=== PATIENT | male | born 1995 | race Hispanic/Latino ===

== ENCOUNTER 2019-04-23 13:28 | Emergency (ER) | payer MEDICAID, OTHER ==
[2019-04-23 14:06] LABS: BASOPHILS % (AUTO) 1.2 % (0.0-5.0); EOSINOPHILS % (AUTO) 2.1 % (0.0-8.0); HEMATOCRIT 42.8 % (42-54); LYMPHOCYTES % (AUTO) 23.7 % (21.0-51.0); MEAN CORPUSCULAR HEMOGLOBIN 29.5 pg (27.0-33.0); MEAN CORPUSCULAR HGB CONC 34.1 g/dL (32.0-36.0); MEAN CORPUSCULAR VOLUME 86.5 fL (79-99); MONOCYTES % (AUTO) 7.9 % (3.0-13.0); NEUTROPHILS % (AUTO) 65.1 % (40.0-77.0); PLATELET COUNT (AUTO) 307 K/uL (130-400); RED BLOOD CELL COUNT(AUTO) 4.95 MIL/uL (4.50-6.20); RED CELL DISTRIBUTION WIDTH 13.5 % (11.0-15.5); WHITE BLOOD COUNT (AUTO) 8.5 K/uL (4.8-10.8)
[2019-04-23 14:17] LABS: CREATININE 0.8 mg/dL (0.5-1.5); POTASSIUM 3.8 mmol/L (3.5-5.1)
[2019-04-23 14:19] LABS: ALBUMIN 3.4 g/dL (3.5-5.0); BILIRUBIN,TOTAL 0.8 mg/dL (0.2-1.0); TOTAL PROTEIN, SERUM 6.7 g/dL (6.0-8.3)
[2019-04-23 14:34] LABS: APPEARANCE,URINE Clear (CLEAR); BILIRUBIN,URINE Negative (NEGATIVE); COLOR,URINE Yellow (YELLOW); GLUCOSE, URINE (UA) Negative (NEGATIVE); KETONES,URINE Negative (NEGATIVE); LEUKOCYTE ESTERASE ,URINE Negative (NEGATIVE); NITRATE,URINE Negative (NEGATIVE); OCCULT BLOOD,URINE Negative (NEGATIVE); PH,URINE 6.5 (5.0-8.0); PROTEIN,URINE Negative (NEGATIVE)
[2019-04-23] MEDS ORDERED: IOHEXOL-350 75 ML VIAL IV ONE (14:51)
[2019-04-23] MEDS ORDERED: MAGNESIUM CITRATE 296 ML SOLUTION ONE (15:45)
== END 2019-04-23 17:40 | disposition home or self-care (01) ==
LOC: EDH 13:28
DX: R10.31 Right lower quadrant pain (principal); Z72.0 Tobacco use
CPT/HCPCS: 36415; 74177; 80053; 81003; 83690; 85025; 99285; Q9967

== ENCOUNTER 2022-08-29 10:18 | Emergency (ER) | payer OTHER ==
[~2022-08-29] VITALS: Ht 165.1 cm; Wt 104.3 kg
[2022-08-29 10:51] LABS: BASOPHILS % (AUTO) 0.6 % (0.0-5.0); EOSINOPHILS % (AUTO) 1.8 % (0.0-8.0); LYMPHOCYTES % (AUTO) 22.8 % (21.0-51.0); MEAN CORPUSCULAR HEMOGLOBIN 29.1 pg (27.0-33.0); MEAN CORPUSCULAR HGB CONC 34.3 g/dL (32.0-36.0); MEAN CORPUSCULAR VOLUME 84.8 fL (79-99); MONOCYTES % (AUTO) 6.3 % (3.0-13.0); NEUTROPHILS % (AUTO) 67.6 % (40.0-77.0); PLATELET COUNT (AUTO) 370 K/uL (130-400); RED BLOOD CELL COUNT(AUTO) 5.54 MIL/uL (4.50-6.20); RED CELL DISTRIBUTION WIDTH 12.7 % (11.0-15.5); WHITE BLOOD COUNT (AUTO) 8.6 K/uL (4.8-10.8)
[2022-08-29 11:01] LABS: APPEARANCE,URINE CLEAR (CLEAR); BILIRUBIN,URINE NEGATIVE (NEGATIVE); COLOR,URINE YELLOW (YELLOW); GLUCOSE, URINE (UA) NEGATIVE (NEGATIVE); KETONES,URINE NEGATIVE (NEGATIVE); LEUKOCYTE ESTERASE ,URINE NEGATIVE Leu/uL (NEGATIVE); NITRATE,URINE NEGATIVE (NEGATIVE); OCCULT BLOOD,URINE NEGATIVE (NEGATIVE); PH,URINE 5.5 (5.0-8.0); PROTEIN,URINE 20 mg/dL (NEGATIVE); UROBILINOGEN,URINE 0.2 mg/dL (0.2-1.0)
[2022-08-29 11:17] LABS: BACTERIA,URINE RARE /HPF (None Seen); MUCUS,URINE RARE LPF (None Seen); SQUAMOUS EPITHELIAL CELL,UR RARE /HPF (0-2)
[2022-08-29] MEDS ORDERED: 0.9%NACL 1000ML 1,000 ML IV ONE (12:00)
[2022-08-29] MEDS ORDERED: ONDANSETRON 4MG INJ IVP ONE (12:00)
[2022-08-29] MEDS ORDERED: FAMOTIDINE 20MG VIAL IV ONE (12:00)
[2022-08-29] MEDS ORDERED: MORPHINE 2 MG SYG IVP ONE (12:00)
[2022-08-29 12:03] LABS: ALBUMIN 3.9 g/dL (3.5-5.0); CREATININE 0.9 mg/dL (0.5-1.5); POTASSIUM 4.2 mmol/L (3.5-5.1); TOTAL PROTEIN, SERUM 8.1 g/dL (6.0-8.3)
[2022-08-29] MEDS ORDERED: ONDA4TAB10 PO (13:01)
[2022-08-29] MEDS ORDERED: FAMO-136 PO (13:01)
[2022-08-29] MEDS ORDERED: DICY20TA2 PO (13:01)
[2022-08-29] MEDS ORDERED: BACI1CAP6 PO (13:01)
[2022-08-29 14:20] VITALS: BP 100/59
== END 2022-08-29 14:19 | disposition home or self-care (01) ==
LOC: EDH 10:18
DX: K52.9 Noninfective gastroenteritis and colitis, unspecified (principal); Z90.89 Acquired absence of other organs
CPT/HCPCS: 99284; 96374; 96361; 96375; 84484; 80053; 83690; 85025; 81001; 36415; 93005; J3490; J7030; J2405

== ENCOUNTER 2025-03-12 15:56 | Emergency (ER) | payer SELFPAY ==
[~2025-03-12] VITALS: Ht 172.7 cm; Wt 113.4 kg
[~2025-03-12 15:56] MED LIST: BACI1CAP6 PO; DICY20TA2 PO; FAMO-136 PO; ONDA-243 PO
--- NOTE | 2025-03-12 17:40 | HMCIMG ---
RIGHT KNEE RADIOGRAPHS - 3 VIEWS INDICATION: Pain COMPARISON: None FINDINGS: AP, lateral, and oblique views. No acute fracture or dislocation identified. No significant joint effusion is present. Overlying soft tissues appear normal. IMPRESSION: No evidence for fracture or dislocation.
[2025-03-12] MEDS ORDERED: AMOX1TAB16 PO (17:48)
--- NOTE | 2025-03-12 17:52 | ERN ---
General Chief Complaint: Skin Problem Stated Complaint: KNEE INJURY Time Seen by MD: 15:58 Time Seen by Midlevel: 15:58 Source: patient History of Present Illness Initial Comments 29-year-old male who presents to the emergency department due to right knee pain onset this morning. Patient states he noticed a pimple to the right knee and attempted to bland state using his blade. Patient states he has noticed some redness and swelling to the right knee but denies any fever, further injuries, or further associated symptoms. Denies significant past medical history. Allergies: Coded Allergies: No Known Allergies (Unverified Allergy, Unknown, 04/23/19) Home Meds Active Scripts Amoxicillin/Potassium Clav (Amox Tr-K Clv 875-125 mg Tab) 875 Mg-125 Mg Tablet, 1 EACH PO BID for 7 Days, #14 TAB 0 Refills Prov:HILDA GRAYSON 03/12/25 Bacillus Coagulans (Probiotic) 1 Each Capsule.dr, 1 EACH PO DAILY, #30 CAP Prov:FITTINGGIOP 08/29/22 Dicyclomine HCl (Bentyl) 20 Mg Tab, 20 MG PO TID PRN for ABDOMINAL PAIN, #15 TAB Prov:FITTINGGIOP 08/29/22 Famotidine (Pepcid) 20 Mg Tablet, 20 MG PO BID, #30 TAB Prov:FITTINGGIO 08/29/22 Ondansetron (Ondansetron Odt) 4 Mg Tab.rapdis, 4 MG PO TID PRN for NAUSEA/VOMITING, #10 TAB Prov:GIO MURRYP 08/29/22 Past Medical History Past Medical History: No Pertinent History Past Surgical History: Tonsillectomy ROS Dictation Constitutional: Negative for fever,chills, and weight loss Eyes: Negative for injury, pain,redness, and discharge ENT: Negative for injury,pain or swelling Cardiovascular: Negative for chest pain, palpitations, and edema Respiratory: Negative for shortness of breath, cough, and wheezing, Abdomen/GI: Negative for abdominal pain, nausea, vomiting, diarrhea, and constipation Back: Negative for injury and pain : Negative for painful urination, bleeding or discharge MS/Extremity: Positive right knee pain, swelling, redness Negative for injury and deformity Skin: Negative for rash, and discoloration Neuro: Negative for headache, weakness, numbness, tingling, and seizure Psych: Negative for suicide ideation, homicidal ideation, and hallucinations Physical Exam Physical Exam Dictation General: awake, alert, no acute distress Head/Face: Normocephalic, atraumatic Eyes: PERRL, EOMI, normal conjunctiva ENT: oral cavity clear, oral mucosa moist Neck: Supple, normal range of motion Cardiovascular: RRR, normal S1/S2 Respiratory: CTAB, no respiratory distress Skin: Warm, dry, normal turgor, no rash. Mild erythema to the anterior aspect of the right knee. MS/Extremity: Pulses equal, no cyanosis, neurovascular intact, FROM. Mild swelling to the right knee, no obvious deformities, full range of motion. Neuro: COAx4, GCS 15, strength 5/5, CN 2-12 intact, normal cerebellar exam, normal gait Psych: Normal behavior, mood, and affect normal Results EKG/XRAY/US/CT/MRI X-RAY Comment REASON: pain ORDERING PHYSICIAN: HILDA GRAYSON PROCEDURE: KNEE 3V RT - KNEE 3VWS RT RIGHT KNEE RADIOGRAPHS - 3 VIEWS INDICATION: Pain COMPARISON: None FINDINGS: AP, lateral, and oblique views. No acute fracture or dislocation identified. No significant joint effusion is present. Overlying soft tissues appear normal. IMPRESSION: No evidence for fracture or dislocation. DICTATED BY: JEAN-CLAUDE REAVES MD DATE: 03/12/251735 [facility] MDM: Differential diagnosis: Abscess, cellulitis, knee sprain, knee strain, knee fracture Rationale: 29-year-old male who presents to the emergency department due to right knee pain onset this morning. Patient states he noticed a pimple to the right knee and attempted to bland state using his blade. Patient states he has noticed some redness and swelling to the right knee but denies any fever, further injuries, or further associated symptoms. Denies significant past medical history. Per physical examination mild tenderness to the right knee, no obvious deformities, normal range of motion, neurovascularly intact, mild erythema and swelling noted to the anterior aspect of the knee. Patient received ketorolac and tetanus vaccination in the ED. right knee x-rays obtained with no indications of fractures, dislocations and normal overlying soft tissue. Patient was educated on findings and diagnosis. Antibiotics prescribed for outpatient treatment. Advised to follow up with PCP. Return to the emergency department if any worsening symptoms. Patient verbalized understanding. Patient stable for discharge. There are no social concerns with this patient. I independently interpreted the test that were performed, results were reviewed by me and considered findings on radiology if ordered. Medical management and examination interpretation discussions were had by me with other qualified healthcare professionals as indicated for the patient's care. ED Course Orders Procedure Category Date Status Time Knee 3vws Rt RAD 03/12/25 Resulted 16:34 Ketorolac PHA 03/12/25 Complete Tromethamine 15mg/Ml 17:00 Tetanus,Diphtheria PHA 03/12/25 Complete Tox [Adult] (Diphther 17:00 Current Medications Medications (Trade) Dose Ordered Sig/Mely Route PRN Reason Start Time Stop Time Status Last Admin Dose Admin Ketorolac Tromethamine (toRADol) 15 mg ONCE ONCE IM 03/12/25 17:00 03/12/25 17:01 DC 03/12/25 18:38 Tetanus/ Diphtheria Toxoids Adsorbed (DiphthERIA-teTANUS TOXOID [ADULT]/ DECAVAC) 0.5 ml ONCE ONCE IM 03/12/25 17:00 03/12/25 17:01 DC 03/12/25 18:41 Vital Signs Date Time Temp Pulse Resp B/P (MAP) Pulse Ox O2 Delivery O2 Flow Rate FiO2 03/12/25 18:48 98.2 88 16 141/87 98 Room Air* 0 21 03/12/25 16:26 98.2 97 16 148/96 98 Room Air 0 DX & DISP Disposition: Discharge Departure Impression: Primary Impression: Cellulitis of knee, right Condition: Stable Scripts Amoxicillin/Potassium Clav (Amox Tr-K Clv 875-125 mg Tab) 875 Mg-125 Mg Tablet 1 EACH PO BID for 7 Days, #14 TAB 0 Refills Prov: HILDA GRAYSON 03/12/25 Additional Instructions: Discharge home. Rest. Follow up with primary care DrDipti in 24 hours. Return to the ER for any acute changes or worsening symptoms. If any medications were prescribed take as directed. Okay to continue home medications unless otherwise discussed during your visit in the emergency room today. Patient was also advised to follow-up with primary care physician in 1 to 2 days for continued monitoring. Referrals: SELF,REFERRAL (PCP) HILDA GRAYSON Mar 12, 2025 17:52 DORIS STOLL DO March 14, 2025 09:59
--- NOTE | 2025-03-12 18:08 | NUR ---
PT MOVED TO FAST TRACK ASSUMED CARE AT THIS TIME
[2025-03-12] MEDS: ketOROlac 15MG/ML VIAL (15MG/ML) IM ONE (18:38)
[2025-03-12] MEDS: teTANUS/diphthERIA TOXOID [ADULT] 0.5 ML VIAL IM ONE (18:41)
[2025-03-12 18:48] VITALS: BP 141/87; PULSE 88; RESP 16; TEMP 98.2; O2SAT 98
== END 2025-03-12 19:00 | disposition home or self-care (01) ==
LOC: EDH 15:56
DX: L03.115 Cellulitis of right lower limb (principal); S80.211A Abrasion, right knee, initial encounter; Z90.89 Acquired absence of other organs; Z79.899 Other long term (current) drug therapy; X58.XXXA Exposure to other specified factors, initial encounter; Y93.89 Activity, other specified; Y92.89 Other specified places as the place of occurrence of the external cause; Y99.8 Other external cause status
CPT/HCPCS: 99284; 90714; 73562; 96372; 90471; J1885